=== PATIENT | female | born 1995 | race Caucasian/White ===

== ENCOUNTER 2017-06-13 19:34 | Emergency (ER) | payer SELFPAY ==
[~2017-06-13] VITALS: Ht 177.8 cm; Wt 62.3 kg
[~2017-06-13 19:34] MED LIST: CEFTIN 250250 MG/TAB PO; NO HOME MEDICATIONS
[2017-06-13 19:37] VITALS: BP 120/76; TEMP 98.3
[2017-06-13 19:52] LABS: COLLECTION METHOD CLEAN CATCH
[2017-06-13 19:59] LABS: PH 7 (5-8); SQUAMOUS EPITHELIAL 0-2 /hpf; URINE APPEARANCE Clear; URINE BACTERIA Rare /hpf; URINE BILIRUBIN Negative (NEGATIVE); URINE BLOOD Negative (NEGATIVE); URINE COLOR Straw; URINE GLUCOSE Negative (NEGATIVE); URINE KETONE Negative (NEGATIVE); URINE LEUKOCYTE ESTERASE Trace (NEGATIVE); URINE NITRATE Negative (NEGATIVE); URINE PROTEIN(semi-quant) Negative (NEGATIVE); URINE RBC 0-2 /hpf; URINE UROBILINOGEN Negative (NEGATIVE)
[2017-06-13 21:23] VITALS: PULSE 78
== END 2017-06-13 21:39 | disposition home or self-care (01) ==
LOC: COL.ER 19:34
PROVIDERS: Physician Assistant
DX: N89.8 Other specified noninflammatory disorders of vagina (principal); F17.210 Nicotine dependence, cigarettes, uncomplicated; Z20.2 Contact with and (suspected) exposure to infections with a predominantly sexual mode of transmission
CPT/HCPCS: J0696

== ENCOUNTER 2017-09-12 23:18 | Emergency (ER) | payer SELFPAY ==
[~2017-09-12 23:18] MED LIST changes: +CEPHALEXIN500 M1 PO
[2017-09-12 23:22] VITALS: BP 116/79; TEMP 98.1
[2017-09-12 23:37] LABS: COLLECTION METHOD CLEAN CATCH
[2017-09-12 23:49] LABS: PH 7 (5-8); SQUAMOUS EPITHELIAL 0-2 /hpf; URINE APPEARANCE Clear; URINE BACTERIA Rare /hpf; URINE BILIRUBIN Negative (NEGATIVE); URINE BLOOD Negative (NEGATIVE); URINE COLOR Yellow; URINE GLUCOSE Negative (NEGATIVE); URINE KETONE Negative (NEGATIVE); URINE LEUKOCYTE ESTERASE Trace (NEGATIVE); URINE NITRATE Negative (NEGATIVE); URINE PROTEIN(semi-quant) Negative (NEGATIVE); URINE RBC 0-2 /hpf; URINE UROBILINOGEN Negative (NEGATIVE)
[2017-09-12] MEDS ORDERED: OMNICEF 300MG300 MG PO (23:53)
[2017-09-13 00:31] VITALS: PULSE 71
== END 2017-09-13 00:32 | disposition home or self-care (01) ==
LOC: COL.ER 23:18
PROVIDERS: Physician Assistant
DX: N39.0 Urinary tract infection, site not specified (principal); F17.210 Nicotine dependence, cigarettes, uncomplicated

== ENCOUNTER 2017-12-18 14:30 | Emergency (ER) | payer SELFPAY ==
[~2017-12-18] VITALS: Ht 180.3 cm; Wt 66.8 kg
[~2017-12-18 14:30] MED LIST changes: +OMNICEF 300MG300 MG PO
[2017-12-18 14:47] VITALS: BP 102/59; TEMP 98.8
[2017-12-18 14:59] LABS: COLLECTION METHOD CLEAN CATCH
[2017-12-18 15:07] LABS: MUCOUS Present /lpf; PH 5 (5-8); URINE APPEARANCE Clear; URINE BACTERIA Rare /hpf; URINE BILIRUBIN Negative (NEGATIVE); URINE BLOOD 2+ (NEGATIVE); URINE COLOR Yellow; URINE GLUCOSE Negative (NEGATIVE); URINE KETONE Negative (NEGATIVE); URINE LEUKOCYTE ESTERASE Negative (NEGATIVE); URINE NITRATE Negative (NEGATIVE); URINE PROTEIN(semi-quant) Negative (NEGATIVE); URINE UROBILINOGEN Negative (NEGATIVE)
[2017-12-18] MEDS ORDERED: ZITHROMAX Z PA250 MG PO (16:26)
[2017-12-18] MEDS ORDERED: PREDNISONE20 MG PO (16:26)
[2017-12-18 16:34] VITALS: PULSE 82
== END 2017-12-18 16:35 | disposition home or self-care (01) ==
LOC: COL.ER 14:30
PROVIDERS: Emergency Medicine
DX: J40 Bronchitis, not specified as acute or chronic (principal); J98.01 Acute bronchospasm; F17.210 Nicotine dependence, cigarettes, uncomplicated; Z98.890 Other specified postprocedural states